=== PATIENT | male | born 1955 | race Caucasian/White ===

== ENCOUNTER 2020-11-10 14:36 | Inpatient (IN) | payer OTHER, SELFPAY ==
[~2020-11-10] VITALS: Ht 182.9 cm; Wt 94.1 kg
[2020-11-10 15:13] LABS: BASOPHIL 0.5 % (0-2); EOSINOPHIL 0.9 % (0-7); HCT 53.1 % (42.0-52.0); HGB 15.7 g/dl (13.2-18.0); LYMPHOCYTE 28.1 % (15-48); MCH 25.5 pg (25.0-31.0); MCHC 29.6 g/dL (32.0-36.0); MCV 86.2 fL (78.0-100.0); MONOCYTE 8.5 % (0-12); MPV 10.5 fL (6.0-9.5); NEUTROPHIL 61.7 % (41-80); NRBC 0; PLT 157 K/uL (150-400); RBC 6.16 M/uL (4.70-6.00); RDW 23.1 % (11.5-14.0); WBC 7.7 K/uL (4.0-10.5)
[2020-11-10 15:22] LABS: INR 1.34 (0.9-1.2); PROTHROMBIN TIME 15.7 SECONDS (11.4-13.6)
[2020-11-10 15:23] LABS: PTT 32.5 SECONDS (22.2-34.7)
[2020-11-10 15:51] LABS: BILIRUBIN - TOTAL 0.8 mg/dL (0.2-1.0); CREATININE 1.31 mg/dL (0.67-1.17); GLOBULIN (CALCULATION) 5.2 g/dL; POTASSIUM 4.2 mmol/L (3.5-5.1); TOTAL PROTEIN 8.2 g/dL (6.4-8.2)
[2020-11-10] MEDS ORDERED: LASIX20 MG PO (19:45)
[2020-11-10] MEDS ORDERED: LISINOPRIL5 MG PO (19:50)
[2020-11-10] MEDS ORDERED: ASPIRIN EC81 M1 PO (19:50)
[2020-11-10] MEDS ORDERED: ATORVASTATIN CA80 MG PO (19:51)
[2020-11-10] MEDS ORDERED: MISOPROSTOL200 MCG PO (19:52)
[2020-11-10] MEDS ORDERED: OMEPRAZOLE 20MG20 MG PO (19:53)
[2020-11-10] MEDS ORDERED: METOPROLOL SUC100 MG PO (19:54)
[2020-11-10] MEDS ORDERED: MIRAPEX0.25 MG PO (19:56)
[2020-11-10] MEDS ORDERED: 3IN1 COMMODE (19:57)
[2020-11-11 06:09] LABS: BASOPHIL 0.6 % (0-2); EOSINOPHIL 1.6 % (0-7); HGB 14.1 g/dl (13.2-18.0); LYMPHOCYTE 24.9 % (15-48); MCH 25.3 pg (25.0-31.0); MCHC 28.8 g/dL (32.0-36.0); MCV 87.8 fL (78.0-100.0); MONOCYTE 8.8 % (0-12); MPV 9.8 fL (6.0-9.5); NEUTROPHIL 63.9 % (41-80); NRBC 0; PLT 137 K/uL (150-400); RBC 5.58 M/uL (4.70-6.00); RDW 22.9 % (11.5-14.0); WBC 6.3 K/uL (4.0-10.5)
[2020-11-11 06:29] LABS: BUN/CREAT RATIO (CALC) 13.1 RATIO; CREATININE 1.3 mg/dL (0.67-1.17); POTASSIUM 3.5 mmol/L (3.5-5.1)
--- NOTE | 2020-11-11 13:37 | NUR ---
PT LIVES WITH SPOUSE AND IS INDEPENDENT WITH CARE; PLEASE ADVISE OF ANY DISCHARGE NEEDS
[2020-11-11 16:16] LABS: BUN/CREAT RATIO (CALC) 12.1 RATIO; CREATININE 1.32 mg/dL (0.67-1.17); POTASSIUM 3.9 mmol/L (3.5-5.1)
[2020-11-12 05:51] LABS: BASOPHIL 0.3 % (0-2); EOSINOPHIL 1.3 % (0-7); HCT 45.8 % (42.0-52.0); HGB 13.2 g/dl (13.2-18.0); LYMPHOCYTE 24.6 % (15-48); MCH 25.2 pg (25.0-31.0); MCHC 28.8 g/dL (32.0-36.0); MCV 87.6 fL (78.0-100.0); MONOCYTE 7.7 % (0-12); MPV 9.7 fL (6.0-9.5); NEUTROPHIL 65.8 % (41-80); NRBC 0; PLT 124 K/uL (150-400); RBC 5.23 M/uL (4.70-6.00); RDW 22.6 % (11.5-14.0); WBC 6.8 K/uL (4.0-10.5)
[2020-11-12 06:16] LABS: BUN/CREAT RATIO (CALC) 12.5 RATIO; CREATININE 1.36 mg/dL (0.67-1.17); MAGNESIUM 1.7 mg/dL (1.8-2.4); POTASSIUM 3.9 mmol/L (3.5-5.1)
--- NOTE | 2020-11-12 20:13 | NUR ---
PATIENT ON 1LNC, SAT 94% PATIENT HAS COARSE CRACKLES/RALES THROUGHOUT LEFT SIDE AND CRACKLES/RALES RLL PATIENT STRONG CONGESTED COUGH, PRODUCTIVE AT TIMES PATIENT USING ISB
[2020-11-13 06:22] LABS: BUN/CREAT RATIO (CALC) 13.2 RATIO; CREATININE 1.29 mg/dL (0.67-1.17); POTASSIUM 4.6 mmol/L (3.5-5.1)
[2020-11-13 06:28] LABS: MAGNESIUM 2.3 mg/dL (1.8-2.4)
[2020-11-13] MEDS ORDERED: POTASSIUM CHLO20 ME1 PO (10:15)
[2020-11-13] MEDS ORDERED: LASIX40 MG PO (10:15)
== END 2020-11-13 13:12 | disposition home or self-care (01) | DRG 291 ==
LOC: FER 14:36 → FTCU 17:46
PROVIDERS: Emergency Medicine; Internal Medicine Cardiovascular Disease; Nurse Practitioner; Nurse Practitioner Family; ADMIT Internal Medicine
DX: I13.0 Hypertensive heart and chronic kidney disease with heart failure and stage 1 through stage 4 chronic kidney disease, or unspecified chronic kidney disease (principal); J96.01 Acute respiratory failure with hypoxia; I50.23 Acute on chronic systolic (congestive) heart failure; J96.02 Acute respiratory failure with hypercapnia; I25.10 Atherosclerotic heart disease of native coronary artery without angina pectoris; I73.9 Peripheral vascular disease, unspecified; J44.9 Chronic obstructive pulmonary disease, unspecified; N18.30 Chronic kidney disease, stage 3 unspecified; G89.29 Other chronic pain; M54.9 Dorsalgia, unspecified; D69.6 Thrombocytopenia, unspecified; G25.81 Restless legs syndrome; K21.9 Gastro-esophageal reflux disease without esophagitis; I25.5 Ischemic cardiomyopathy; E87.6 Hypokalemia; I48.91 Unspecified atrial fibrillation; E78.5 Hyperlipidemia, unspecified; F17.210 Nicotine dependence, cigarettes, uncomplicated; I25.2 Old myocardial infarction; Z95.1 Presence of aortocoronary bypass graft; Z98.42 Cataract extraction status, left eye; Z98.41 Cataract extraction status, right eye; Z79.82 Long term (current) use of aspirin
CPT/HCPCS: 36415; 36600; 71045; 71250; 80048; 80053; 80061; 82803; 83735; 83880; 84484; 85025; 85610; 85730; 93005; J1650; J1940; J3475; U0002

== ENCOUNTER → 2021-05-25 | Day surgery (SDC) | payer MEDICARE ==
[~2021-05-25] VITALS: Ht 182.9 cm; Wt 84.1 kg
[~2021-05-25] MED LIST: 3IN1 COMMODE; ASPIRIN EC81 M1 PO; ATORVASTATIN CA80 MG PO; ELIQUIS2.5 MG PO; LASIX20 MG PO; LASIX40 MG PO; LISINOPRIL5 MG PO; METOPROLOL SUC100 MG PO; MIRAPEX0.25 MG PO; MISOPROSTOL200 MCG PO; OMEPRAZOLE 20MG20 MG PO; POTASSIUM CHLO20 ME1 PO
[2021-05-25 08:37] LABS: HCT 50.5 % (42.0-52.0); MCH 30.9 pg (25.0-31.0); MCHC 31.7 g/dL (32.0-36.0); MCV 97.7 fL (78.0-100.0); MPV 10.2 fL (6.0-9.5); RBC 5.17 M/uL (4.70-6.00); RDW 15.5 % (11.5-14.0); WBC 11.6 K/uL (4.0-10.5)
[2021-05-25 08:54] LABS: ALBUMIN 3.6 g/dL (3.4-5.0); BILIRUBIN - TOTAL 0.5 mg/dL (0.2-1.0); CREATININE 1.21 mg/dL (0.67-1.17); GLOBULIN (CALCULATION) 4.7 g/dL; POTASSIUM 4.3 mmol/L (3.5-5.1); TOTAL PROTEIN 8.3 g/dL (6.4-8.2)
== END | disposition home or self-care (01) ==
LOC: FAS 05-05 09:30
PROVIDERS: Surgery
DX: D12.6 Benign neoplasm of colon, unspecified (principal); Z79.84 Long term (current) use of oral hypoglycemic drugs; Z79.899 Other long term (current) drug therapy; Z95.1 Presence of aortocoronary bypass graft
CPT/HCPCS: 36415; 80053; J1610; J2250; J2370; J2704; J7120

== ENCOUNTER 2021-08-17 21:28 | Emergency (ER) | payer MEDICARE ==
[~2021-08-17 21:28] MED LIST changes: +DULOXETINE HCL20 MG PO
[2021-08-17 22:36] LABS: BASOPHIL 0.4 % (0-2); EOSINOPHIL 1.7 % (0-7); HCT 43.5 % (42.0-52.0); HGB 13.2 g/dl (13.2-18.0); LYMPHOCYTE 31.3 % (15-48); MCH 29.2 pg (25.0-31.0); MCHC 30.3 g/dL (32.0-36.0); MCV 96.2 fL (78.0-100.0); MONOCYTE 9.8 % (0-12); MPV 9.9 fL (6.0-9.5); NEUTROPHIL 56.5 % (41-80); NRBC 0; PLT 156 K/uL (150-400); RBC 4.52 M/uL (4.70-6.00); RDW 14.7 % (11.5-14.0); WBC 7.6 K/uL (4.0-10.5)
[2021-08-17 22:44] LABS: BUN/CREAT RATIO (CALC) 17.9 RATIO; CREATININE 1.23 mg/dL (0.67-1.17); POTASSIUM 3.8 mmol/L (3.5-5.1)
== END 2021-08-18 | disposition home or self-care (01) ==
LOC: FER 21:28
PROVIDERS: Internal Medicine
DX: R00.2 Palpitations (principal); I13.0 Hypertensive heart and chronic kidney disease with heart failure and stage 1 through stage 4 chronic kidney disease, or unspecified chronic kidney disease; N18.31 Chronic kidney disease, stage 3a; I50.9 Heart failure, unspecified; I25.10 Atherosclerotic heart disease of native coronary artery without angina pectoris; F17.210 Nicotine dependence, cigarettes, uncomplicated
CPT/HCPCS: 36415; 80048; 84484; 85025; 93005